=== PATIENT | male | born 1995 | race Caucasian/White ===

== ENCOUNTER 2020-02-09 12:38 | Emergency (ER) | payer OTHER ==
[~2020-02-09] VITALS: Ht 177.8 cm; Wt 95.3 kg
--- NOTE | 2020-02-09 12:46 | NUR ---
AMBULATED TO BED 7
[2020-02-09 12:47] VITALS: BP 138/91
[2020-02-09] MEDS ORDERED: KETOROLAC 30 MG/ML VIAL IVP ONE (12:55)
[2020-02-09] MEDS ORDERED: NACL 0.9% 1,000 ML IV ONE (12:55)
[2020-02-09] MEDS ORDERED: ONDANSETRON 4 MG/2 ML VIAL IVP ONE (13:00)
--- NOTE | 2020-02-09 13:05 | NUR ---
20 G IV INSERTED L AC
--- NOTE | 2020-02-09 13:10 | NUR ---
ACUTE ONSET OF LEFT FLANK SHARP PAIN TODAY---PT DESCRIBES PAIN VERY SIMILAR TO WHEN HE WAS DIAGNOSED WITH KIDNEY STONES----DENIES DYSURIA
[2020-02-09 13:46] VITALS: BP 138/91
--- NOTE | 2020-02-09 13:46 | NUR ---
Patient discharged with v/s stable. Written and verbal after care instructions given and explained. Patient alert, oriented and verbalized understanding of instructions. Ambulatory with steady gait. All questions addressed prior to discharge. ID band removed. Patient advised to follow up with PMD. Rx of MOTRIN, FLOMAX, ZOFRAN, NORCO given. Patient educated on indication of medication including possible reaction and side effects. Opportunity to ask questions provided and answered.
== END 2020-02-09 13:46 | disposition home or self-care (01) ==
LOC: MED 12:38
DX: R10.9 Unspecified abdominal pain (principal); R11.2 Nausea with vomiting, unspecified
CPT/HCPCS: 81002; 96361; 96374; 96375; 99284; J1885; J2405; J7030

== ENCOUNTER 2020-05-17 00:57 | Emergency (ER) | payer OTHER ==
[~2020-05-17] VITALS: Ht 177.8 cm; Wt 94.3 kg
[2020-05-17 01:05] VITALS: BP 137/69
--- NOTE | 2020-05-17 01:10 | NUR ---
PT AMBULATED TO BED #11
[2020-05-17] MEDS ORDERED: ONDANSETRON 4 MG/2 ML VIAL IVP ONE ×2 (01:15→02:15)
[2020-05-17] MEDS ORDERED: NACL 0.9% 1,000 ML IV ONE (01:15)
[2020-05-17] MEDS ORDERED: KETOROLAC 15 MG/ML VIAL IVP ONE ×2 (01:15→02:15)
--- NOTE | 2020-05-17 01:15 | NUR ---
SEE COMPLETE ASSESSMENT
--- NOTE | 2020-05-17 01:50 | NUR ---
URINE COLLECTED AND SENT TO LAB.
[2020-05-17 02:04] LABS: APPEARANCE,URINE CLEAR (CLEAR); BILIRUBIN,URINE NEGATIVE (NEGATIVE); BLOOD, URINE 3+ (NEGATIVE); COLOR,URINE YELLOW (YELLOW); LEUKOCYTE ESTERASE ,URINE NEGATIVE (NEGATIVE); NITRITE, URINE NEGATIVE (NEGATIVE); UGLUCOSE NEGATIVE (NEGATIVE)
[2020-05-17 02:34] LABS: RBC,URINE 11-20 (MOD) /HPF (0-5); WBC,URINE 0-5 /HPF (0-5)
[2020-05-17 02:47] VITALS: BP 137/69
--- NOTE | 2020-05-17 02:47 | NUR ---
Patient discharged with v/s stable. Written and verbal after care instructions given and explained. Patient alert, oriented and verbalized understanding of instructions. Ambulatory with steady gait. All questions addressed prior to discharge. ID band removed. Patient advised to follow up with PMD. Rx of sun fan given. Patient educated on indication of medication including possible reaction and side effects. Opportunity to ask questions provided and answered.
== END 2020-05-17 02:47 | disposition home or self-care (01) ==
LOC: MED 00:57
DX: N20.0 Calculus of kidney (principal); J45.909 Unspecified asthma, uncomplicated; Z87.442 Personal history of urinary calculi
CPT/HCPCS: 81001; 96361; 96374; 96375; 96376; 99284; J1885; J2405

== ENCOUNTER 2021-02-21 18:20 | Emergency (ER) | payer OTHER ==
[~2021-02-21] VITALS: Ht 177.8 cm; Wt 97.1 kg
[2021-02-21 18:27] VITALS: BP 155/93
--- NOTE | 2021-02-21 18:30 | NUR ---
Pt ambulated to restroom to provide urine sample
[2021-02-21] MEDS ORDERED: KETOROLAC 30 MG/ML VIAL IVP ONE (18:35)
[2021-02-21] MEDS ORDERED: NACL 0.9% 1,000 ML IV ONE (18:35)
--- NOTE | 2021-02-21 18:35 | NUR ---
25 y/o M BIB self from home with c/c left flank pain. Patient states 3 days of L flank pain, 6/10, sharp/constant, non-radiating. Patient reports slight dysuria and hematuria. Pt states Ibuprofen without relief. Patient denies fever, chills, N/V/D, SOB, CP. Patient reports symptoms feel similar to kidney stones 1 year ago. Pt urine sample provided. Bed locked in lowest position, side rails x 1, call light in reach. PMH: Asthma Meds/Sx: Denies NKA
--- NOTE | 2021-02-21 18:42 | NUR ---
Dr. Martinez is evaluating the patient at bedside.
[2021-02-21] MEDS ORDERED: TAMS0.4C96 PO (18:58)
[2021-02-21] MEDS ORDERED: IBUP-2213 PO (18:58)
[2021-02-21] MEDS ORDERED: ACET-8386 PO (18:58)
[2021-02-21] MEDS ORDERED: ONDA8TAB87 PO (18:58)
--- NOTE | 2021-02-21 19:00 | NUR ---
Patient vomited 1 episode; Dr. Martinez made aware and orders placed.
[2021-02-21] MEDS ORDERED: ONDANSETRON 4 MG/2 ML VIAL IVP ONE (19:05)
[2021-02-21] MEDS ORDERED: ONDANSETRON 4 MG/2 ML VIAL ONE (19:06)
--- NOTE | 2021-02-21 19:09 | NUR ---
Patient reports positive relief from nausea after Zofran 4mg IVP.
--- NOTE | 2021-02-21 19:15 | NUR ---
Report and transfer of care endorsed to EMILY Maldonado.
--- NOTE | 2021-02-21 19:15 | NUR ---
Received report from EMILY Fletcher for continuity of care.
--- NOTE | 2021-02-21 19:16 | NUR ---
Patient in semi fowlers in left position, talking, cooperative. AAOx4. VSS. Patient receiving fluids through right AC with 18 gauge. Safety measures in place. Will continue to monitor.
--- NOTE | 2021-02-21 19:32 | NUR ---
IV removed, catheter intact and site benign. Applied folded 4x4 gauze and tape to stop bleeding.
[2021-02-21 19:34] VITALS: BP 147/85
--- NOTE | 2021-02-21 19:34 | NUR ---
Patient discharged with v/s stable. Written and verbal after care instructions given and explained. Patient alert, oriented and verbalized understanding of instructions. Ambulatory with steady gait. All questions addressed prior to discharge. ID band removed. Patient advised to follow up with PMD. Rx of hydrocodon-acetaminophen, zofran, flomax, ibuprofen given. Patient educated on indication of medication including possible reaction and side effects. Opportunity to ask questions provided and answered.
== END 2021-02-21 19:34 | disposition home or self-care (01) ==
LOC: MED 18:20
DX: R31.9 Hematuria, unspecified (principal); J45.909 Unspecified asthma, uncomplicated; Z87.448 Personal history of other diseases of urinary system; F12.10 Cannabis abuse, uncomplicated
CPT/HCPCS: 81002; 96361; 96374; 96375; 99284; J1885; J2405; J7030